=== PATIENT | female | born 1985 | race Caucasian/White ===

== ENCOUNTER 2025-05-19 07:44 | Outpatient (CLI) | payer MEDICAID, SELFPAY | END 2025-05-19 07:45 | disposition home or self-care (01) | LOC: DI.CARD 07:44 | PROVIDERS: PCP Internal Medicine Interventional Cardiology; Visit Provider Registered Nurse | DX: I48.91 Unspecified atrial fibrillation (principal); R00.1 Bradycardia, unspecified; Z95.0 Presence of cardiac pacemaker | CPT/HCPCS: 93010 ==